=== PATIENT | male | born 1930 | race Caucasian/White ===

== ENCOUNTER → 2018-12-27 12:03 | Outpatient (CLI) | payer MEDICARE, OTHER | END | disposition home or self-care (01) | LOC: D.RAD 12-21 14:15 → D.RT 12-21 14:30 → D.RAD 12:03 | PROVIDERS: ATTEND Internal Medicine Pulmonary Disease | DX: J44.9 Chronic obstructive pulmonary disease, unspecified (principal) ==

== ENCOUNTER → 2019-02-23 09:23 | Outpatient (CLI) | payer MEDICARE, OTHER | END | disposition home or self-care (01) | LOC: D.CT 09:23 | PROVIDERS: ATTEND Internal Medicine Pulmonary Disease | DX: R93.89 Abnormal findings on diagnostic imaging of other specified body structures (principal) ==